=== PATIENT | male | born 1960 ===

== ENCOUNTER 2017-10-11 21:44 | Emergency (ER) | payer SELFPAY ==
[2017-10-11 21:50] VITALS: BMI 25.8
[2017-10-11 21:57] VITALS: RESP 18
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
[2017-10-11 22:55] LABS: BASO # 0.02 K/mm3 (0.0-2.0); BASO % 0.4 % (0.0-3.0); EOS # 0.2 (0.0-0.7); EOS % 3.3 % (1.5-5.0); GRAN # 3.53 (1.4-6.5); GRAN % 69.3 % (50.0-68.0); HEMATOCRIT 41.3 % (42.0-52.0); LYMPH % 18.7 % (22.0-35.0); MEAN CELL VOLUME 91.6 fl (80.0-105.0); MEAN CORPUSCULAR HGB CONC 33.9 g/dl (31.0-37.0); MEAN PLATELET VOLUME 9.8 fl (7.0-11.0); MONO # 0.4 (0.1-0.6); MONO % 8.3 % (1.0-6.0); RED CELL DISTRIBUTION WIDTH 14.1 % (11.5-14.5); WHITE BLOOD COUNT 5.1 10^3/ul (4.5-11.0)
[2017-10-11 23:00] LABS: CALCIUM 9.2 mg/dL (8.4-10.5); POTASSIUM 4.7 mmol/L (3.6-5.0)
[2017-10-11 23:05] LABS: INR 1.15 (0.93-1.08)
[2017-10-12 01:19] VITALS: BP 126/81; PULSE 80; TEMP 98.2; O2SAT 97
[2017-10-12] MEDS ORDERED: Oxycodone/Acetaminophen 5/325 mg Tab PO STA (01:33)
[2017-10-12] MEDS ORDERED: Oxycodone/Acetaminophen 5/325 mg Tab ONE (01:34)
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
== END 2017-10-12 01:40 | disposition short-term general hospital (02) ==
LOC: ED 21:44 → EDBD 21:44 → ED 10-12 01:40
DX: S02.81XA Fracture of other specified skull and facial bones, right side, initial encounter for closed fracture (principal); Y08.89XA Assault by other specified means, initial encounter; Y92.89 Other specified places as the place of occurrence of the external cause; I48.91 Unspecified atrial fibrillation; Z79.01 Long term (current) use of anticoagulants
CPT/HCPCS: 70450; 70486; 71010; 72125; 80048; 85025; 85610; 86850; 86900; 99285; G0480